=== PATIENT | female | born 1955 | race Caucasian/White ===

== ENCOUNTER 2021-05-26 09:10 | Outpatient (CLI) | payer MEDICARE ==
[2021-05-26 18:26] LABS: SARS-CoV-2 PCR by NAA Not Detected (NotDetected)
== END 2021-05-26 09:11 | disposition home or self-care (01) ==
LOC: CSHLAB 09:10
PROVIDERS: ATTEND Internal Medicine Gastroenterology
DX: Z20.822 Contact with and (suspected) exposure to COVID-19 (principal); Z86.010 Personal history of colon polyps
CPT/HCPCS: U0003; U0005

== ENCOUNTER 2021-05-31 09:16 | Day surgery (SDC) | payer MEDICARE ==
[2021-05-25 11:26] VITALS: BMI 49.1
[2021-05-31] MEDS ORDERED: Lidocaine 1% MPF 2 ML VIAL ONE (11:05)
[2021-05-31] MEDS ORDERED: Lidocaine 2% MPF 10 ML AMP (For Epidural Use) ONE (11:28)
[2021-05-31] MEDS ORDERED: PROPOFOL 40 ML ONE (11:28)
[2021-05-31] MEDS ORDERED: PROPOFOL 20 ML ONE (11:55)
== END 2021-05-31 13:00 | disposition home or self-care (01) ==
LOC: CSHSDC 09:16
PROVIDERS: ATTEND Internal Medicine Gastroenterology
PROC: 0DBN8ZZ Excision of Sigmoid Colon, Via Natural or Artificial Opening Endoscopic (ICD-10-PCS; principal; 2021-05-31)
DX: Z12.11 Encounter for screening for malignant neoplasm of colon (principal); K64.9 Unspecified hemorrhoids; I10 Essential (primary) hypertension; E03.9 Hypothyroidism, unspecified
CPT/HCPCS: 88305; J2704

== ENCOUNTER 2022-05-07 09:51 | Outpatient (CLI) | payer MEDICARE | END 2022-05-07 09:52 | disposition home or self-care (01) | LOC: CSHMAMMO 09:51 | PROVIDERS: ATTEND Physician Assistant | DX: Z12.31 Encounter for screening mammogram for malignant neoplasm of breast (principal); Z13.820 Encounter for screening for osteoporosis; Z78.0 Asymptomatic menopausal state; M81.0 Age-related osteoporosis without current pathological fracture; M85.852 Other specified disorders of bone density and structure, left thigh; M85.851 Other specified disorders of bone density and structure, right thigh | CPT/HCPCS: 77063; 77067; 77080 ==

== ENCOUNTER 2024-04-06 11:38 | Outpatient (CLI) | payer MEDICARE | END 2024-04-06 11:39 | disposition home or self-care (01) | LOC: CSHRAD 11:38 | PROVIDERS: ATTEND Physician Assistant | DX: M79.18 Myalgia, other site (principal); M47.816 Spondylosis without myelopathy or radiculopathy, lumbar region; M43.17 Spondylolisthesis, lumbosacral region; E11.9 Type 2 diabetes mellitus without complications; I10 Essential (primary) hypertension; E55.9 Vitamin D deficiency, unspecified; E03.9 Hypothyroidism, unspecified | CPT/HCPCS: 36415; 72100; 80053; 80061; 81003; 82043; 82306; 83036; 84439; 84443; 85025 ==